=== PATIENT | male | born 1985 | race Caucasian/White ===

== ENCOUNTER 2024-10-06 11:10 | Emergency (ER) | payer OTHER, SELFPAY ==
--- NOTE | 2024-10-06 11:12 | ED_ITS ---
HPI - Eye Problem General Chief complaint: Eye Problems Stated complaint: right eye Time Seen by Provider: 10/06/24 11:20 Source: patient Mode of arrival: ambulatory Limitations: no limitations History of Present Illness HPI Narrative: 39 y/o male presented for c/o right eye lower lid redness, swelling and pain. Onset 4 days. Says it improved and almost resolved but this morning he woke with more swelling and pain. Has used lubricating eye drops. Denies vision changes or eye pain, or photophobia. Denies eye injury or FB. MD chief complaint: eye pain Related Data Home Medications ?Medication ?Instructions ?Recorded ?Confirmed ?Last Taken ?Type lisinopril 40 mg tablet mg 10/06/24 Unknown History Allergies Allergy/AdvReac Type Severity Reaction Status Date / Time No Known Allergies Allergy Unverified 08/29/16 12:33 Review of Systems Review of Systems: CONSTITUTIONAL: Denies body aches, fever, chills EYES:Endorses swelling, redness and pain to right lower eye; Denies visual changes, FB sensation, photophobia ENT: Denies rhinorrhea, congestion, sore throat, or otalgia. CARDIOVASCULAR: Denies chest pain, palpitations RESPIRATORY: Denies cough or dyspnea. GASTROINTESTINAL: Denies abdominal pain, nausea, vomiting, or diarrhea. SKIN: Denies rash, itching, or wounds. MUSCULOSKELETAL: Denies back pain, joint pain, or myalgia. NEUROLOGIC: Denies headache, numbness, tingling, or weakness. All systems reviewed & are unremarkable except as noted in HPI and below PMFSH Comments At time of signature, I have reviewed and agree with nursing past medical, surgical, social and family history unless otherwise noted. Please see nursing chart for further information. There is no relevant family history pertinent to the presenting complaint Exam Narrative: GENERAL: Well-appearing HEAD: Normocephalic, atraumatic. EYES: mild right conjunctival injection, Right medial lower eye lid swelling and erythema, tender, internal hordeolum noted. PERRLA, EOMI. Lid eversion shows no FB. ENT: Mucous membranes pink and moist. No rhinorrhea. CHEST: Clear to auscultation. HEART: Regular rate and rhythm. SKIN: Warm, dry, no rash. Normal skin turgor. NEURO: No focal deficits. Alert and oriented x3 PSYCH: Normal affect. Course Course Emergency Course: Patient is aware of diagnosis, understands and agrees to treatment plan. Anticipatory guidance given. Patient agrees to follow-up as directed and is aware of reasons to seek care at the emergency department. Portions of this record may have been created with voice recognition software Level of Care: Express Care Visit MDM - Eye Problem MDM Narrative Medical decision making narrative: Discussed physical exam findings c/w internal hordeolum right eye. Advised supportive measures for stye and signs/symptoms to go to the ER.RX for pt exposure to pink eye. Pt is appropriate for outpt treatment and f/u. Differential Diagnosis Differential diagnosis: Likely corneal abrasion, conjunctivitis, acute iritis, hyphema, periorbital cellulitis, subconjunctival hemorrhage and corneal ulcer Discharge Plan Discharge Clinical Impression: Internal hordeolum of right eye Patient Disposition: Home Condition: Stable Instructions: Antibiotic Form, Jony (ED) Additional Instructions: Apply warm, moist compresses on the affected area frequently ( 10 minutes several times per day) in order to help with drainage. Massage and gentle wiping of the affected eyelid after the warm compress can also help with drainage. You can use baby shampoo to wash the eye area Take medication as directed. If the lesion does not improve within one to two weeks, please follow up with an adjusto writer operator for further management. [facility] [phone] [facility] [phone] [facility] [phone] [facility] [phone] Patient Language: Chinese Prescriptions: New polymyxin B sulf-trimethoprim 10,000 unit- 1 mg/mL drops 1 drp RIGHT EYE Q4H 7 Days Qty: 10 0RF Rx Instructions: while awake; do not exceed 6 doses in 24 hours No Action lisinopril 40 mg tablet Follow-up/Referrals: UNKNOWN,DOCTOR [Non-Staff] - Time of Disposition: 11:28
[2024-10-06 11:17] VITALS: BP 145/86; PULSE 103; RESP 16; TEMP 37.1; O2SAT 98
== END 2024-10-06 11:33 | disposition home or self-care (01) ==
PROVIDERS: Emergency Provider Nurse Practitioner Family
DX: H00.023 Hordeolum internum right eye, unspecified eyelid (principal)
CPT/HCPCS: 99203; G0463

== ENCOUNTER 2024-11-05 08:53 | Emergency (ER) | payer OTHER, SELFPAY ==
--- NOTE | ~2024-11-05 | XR_ITS ---
EXAMINATION: XR ribs RT 2V DATE: 11/05/2024 09:37 INDICATION: Right lower anterior rib pain TECHNIQUE: 3 images of the right ribs were obtained. COMPARISON: None available FINDINGS: No right rib fracture identified. No sclerotic or destructive bone lesion identified in the right ribs. Bone mineralization is within normal limits. IMPRESSION: 1. No right rib fracture identified. If symptoms persist or worsen, consider a short-term follow-up study or additional imaging for further assessment. Reviewed, dictated and finalized at location Q. IMPRESSION: 1. No right rib fracture identified. If symptoms persist or worsen, consider a short-term follow-up study or additio nal imaging for further assessment.
--- NOTE | 2024-11-05 08:54 | ED.CHESTPAIN ---
HPI - Chest Pain General Chief Complaint: Back Pain/Injury Stated Complaint: RIB PAIN Time Seen by Provider: 11/05/24 08:54 Source: patient Mode of arrival: ambulatory Limitations: no limitations History of Present Illness HPI narrative: Tony is a 39-year-old male patient presenting to the clinic today with complaints of right lower lateral anterior rib pain. He reports he was placing a lift up on the back of his truck and as he was doing this he coughed and felt a pop in the right lower ribs. He reports he is now having a sharp/stabbing pain over the right lower anterior ribs. This occurred at 6 am this morning. He has not taken any medications for pain. Rates pain 7/10 currently. Pain worse with sneezing, coughing, and taking a deep breath. He denies feeling short of breath. Related Data Home Medications ?Medication ?Instructions ?Recorded ?Confirmed ?Last Taken ?Type lisinopril 40 mg tablet 40 mg PO .ds 10/06/24 11/05/24 Unknown History fluoxetine 20 mg capsule mg 11/05/24 Unknown History pantoprazole 40 mg tablet,delayed mg PO 11/05/24 Unknown History release Allergies Allergy/AdvReac Type Severity Reaction Status Date / Time No Known Allergies Allergy Verified 11/05/24 09:18 Review of Systems Review of Systems: Pertinent positives per HPI. Patient denies any fever, chills, rash, headache, visual changes, dizziness, cough, runny nose, sore throat, shortness of breath, chest pain, palpitations, nausea, vomiting, diarrhea, constipation, abdominal pain, or any urinary issues. PMFSH Comments At the time of my signature, I reviewed and agree with the nursing past medical, surgical, social, and family history. There is no relevant family history pertinent to the patient complaint. Exam Narrative: General: Well-developed, well nourished, in no apparent distress Head: Normocephalic, atraumatic. Chest wall: No bruising or swelling noted, even rise and fall of the chest wall with inspiration and expiration, point tenderness over the right lower anterior lateral ribs Cardio: Regular rate and rhythm, s1 and s2 normal, no murmur appreciated. Resp: Clear to auscultation bilaterally, no rhonchi, rales, wheezing or rubs. Extremities: No deformity, no edema, no cyanosis, capillary refill less than 2 seconds, peripheral pulses palpable and strong. Integumentary: [place], warm, and dry, intact without lesion, no rashes. Course Course Emergency Course: Portions of this record may have been created with voice recognition software. Level of Care: Express Care Visit Vital Signs Vital signs: Vital Signs Temperature 36.8 C 11/05/24 09:04 Pulse Rate 71 11/05/24 09:04 Respiratory Rate 16 11/05/24 09:04 Blood Pressure 141/88 H 11/05/24 09:04 Pulse Oximetry 100 11/05/24 09:04 Temperature 36.8 C 11/05/24 09:04 Pulse Rate 71 11/05/24 09:04 Respiratory Rate 16 11/05/24 09:04 Blood Pressure 141/88 H 11/05/24 09:04 Pulse Oximetry 100 11/05/24 09:04 Vital signs reviewed MDM - Chest Pain MDM Narrative Medical decision making narrative: At the time of visit patient is resting comfortably on the exam table. Patient appears to be nontoxic. Complaints of right lower lateral anterior rib pain. He reports he was placing a lift up on the back of his truck and as he was doing this he coughed and felt a pop in the right lower ribs. He reports he is now having a sharp/stabbing pain over the right lower anterior ribs. This occurred at 6 am this morning. He has not taken any medications for pain. Rates pain 7/10 currently. Pain worse with sneezing, coughing, and taking a deep breath. He denies feeling short of breath. Toradol 60mg IM and right rib x-ray was ordered. On exam patient has clear lung sounds, even rise fall of the chest wall, no bruising or swelling noted, he has point tenderness over the right lower anterior lateral ribs. Medications: Toradol 60mg IM given in the clinic today. Patient's pain down to a 4/10 at the time of discharge Diagnostics: X-ray of the right ribs was performed and negative for any sign of fracture or malalignment. No sign of pneumo. Plan: I suspect patient has rib pain/chest wall pain. Prescription for baclofen and naproxen was sent to the pharmacy. Supportive measures were discussed with the patient and they voiced understanding discharge instructions and agrees to treatment plan. Return precautions reviewed Differential Diagnosis Differential diagnosis: Likely fracture of rib, pneumothorax, stable angina, atypical chest pain, costochondritis and other (Rib contusion) Imaging Data Radiologist's impression: ITS Impressions Ribs X-Ray 11/05/24 09:49 IMPRESSION: 1. No right rib fracture identified. If symptoms persist or worsen, consider a short-term follow-up study or additional imaging for further assessment. Discharge Plan Discharge Clinical Impression: Rib pain on right side Patient Disposition: Home Condition: Stable Instructions: Antibiotic Form, Rib Contusion (ED) Additional Instructions: Take any prescription medication only as prescribed-naproxen and baclofen Be mindful of sedation precautions given to you if taking a muscle relaxer. May use heat or ice to the affected area Consider massage or chiropractor adjustment if this was discussed with provider May use blue emu, lidocaine patches, or asper cream to affected area- do not apply heat or ice directly over cream- can cause burn. Follow up with your PCP in 3-5 days if symptom persist. Patient Language: Slovak Prescriptions: New naproxen 500 mg tablet 500 mg PO BID PRN (Reason: pain) 7 Days Qty: 14 0RF baclofen 10 mg tablet 10 mg PO TID PRN (Reason: muscle spasm) 7 Days Qty: 21 0RF No Action lisinopril 40 mg tablet 40 mg PO .ds polymyxin B sulf-trimethoprim 10,000 unit- 1 mg/mL drops 1 drp RIGHT EYE Q4H 7 Days Qty: 10 0RF Rx Instructions: while awake; do not exceed 6 doses in 24 hours pantoprazole 40 mg tablet,delayed release (DR/EC) PO fluoxetine 20 mg capsule Follow-up/Referrals: Layla,Mk Stuart MD [Primary Care Provider, Unknown] Stand Alone Forms: Work/School Release IP Time of Disposition: 09:57 Quality NIHSS Nursing Documentation ED NIHSS nursing documentation: reviewed/agree
[2024-11-05 09:04] VITALS: BP 141/88; PULSE 71; RESP 16; TEMP 36.8; O2SAT 100
[2024-11-05] MEDS: KETOROLAC (*BKC) 60 MG/2 ML VIAL IM (09:13)
== END 2024-11-05 10:06 | disposition home or self-care (01) ==
PROVIDERS: Emergency Provider Nurse Practitioner Family; PCP Family Medicine
DX: R07.89 Other chest pain (principal); I10 Essential (primary) hypertension; K21.9 Gastro-esophageal reflux disease without esophagitis; F41.9 Anxiety disorder, unspecified
CPT/HCPCS: 71100; 96372; 99213; G0463; J1885